=== PATIENT | male | born 1960 | race African-American/Black ===

== ENCOUNTER 2017-03-17 06:43 | Inpatient (IN) | payer BC, OTHER, SELFPAY ==
[2017-03-17] MEDS ORDERED: Magnesium Sulfate 2 GM/100 ML BAG ONE (06:56)
[2017-03-17 07:26] LABS: #Eosinphils 0.2 thou/uL (0.0-0.7); #Lymphocytes 1.6 thou/uL (1.20-3.40); #Monocytes 0.5 thou/uL (0.11-0.59); #Neutrophils 2.4 thou/uL (1.40-6.50); %Basophils 0.7 % (0.0-1.0); %Eosinophils 3.9 % (0.0-10.0); %Monocytes 10.9 % (0.0-10.0); Hematocrit 44.5 % (42.0-52.0); Mean Platelet Volume 7.5 fL (7.4-10.4); Red Blood Cell (RBC) Count 4.78 mill/uL (4.70-6.10); White Blood Cell (WBC) Count 4.8 thou/uL (4.8-10.8)
[2017-03-17 07:33] LABS: PTT 34.4 SEC (22.9-36.1); Prothrombin Time 13.8 SEC (12.0-14.7)
[2017-03-17] MEDS ORDERED: Amiodarone In Dextrose,Iso-Osm 200 ML IVPB SCH (07:45)
[2017-03-17 07:51] LABS: Troponin I 0.033 ng/mL (< 0.028)
[2017-03-17 07:53] LABS: ALT (SGPT) 32 U/L (8-55); AST (SGOT) 42 U/L (5-34); Alkaline Phosphatase 216 U/L (40-150); Anion Gap 13 mmol/L (10-20); BUN (Urea Nitrogen) 21 mg/dL (8.4-25.7); Bilirubin, Total 0.5 mg/dL (0.2-1.2); CK (CPK) 67 U/L (30-200); Calc. Creatinine Clearance 0 mL/min (70-130); Calcium 10.6 mg/dL (7.8-10.44); Carbon Dioxide 24 mmol/L (22-29); Chloride 102 mmol/L (98-107); Estimated GFR-MDRD 70; Globulin 4.5 g/dL (2.4-3.5); Lipase 53 U/L (8-78); Protein, Total 7.6 g/dL (6.0-8.3)
[2017-03-17] MEDS ORDERED: Ondansetron HCl/PF 4 MG/2 ML Vial ONE (07:57)
[2017-03-17] MEDS ORDERED: Amiodarone HCl 450 MG, Admixture Fee 1 EACH in Dextrose 5% in Water 250 ML IVPB SCH ×3 (08:00)
[2017-03-17] MEDS ORDERED: Fentanyl 100 MCG/2 ML VIAL ONE (09:29)
--- NOTE | 2017-03-17 10:12 | CT ---
CT ANGIO CHEST WITH CONTRAST: Date: 03/17/17 HISTORY: Evaluate for pulmonary embolism. Chest pain. COMPARISON: None. TECHNIQUE: CT angiogram chest performed after the administration of contrast. 3D rendering is provided. FINDINGS: No proximal segmental pulmonary arterial filling defect. Heart size is enlarged. No significant peric ardial effusion. There is extensive mediastinal adenopathy throughout the chest. Subcarinal adenopathy is present, as well as perihilar adenopathy. There are numerous nodules throughout the lungs. There is peribronchova scular thickening of both lower lobes. There is conglomerate right paratracheal adenopathy measuring 4.3 x 4.6 x 4.3 cm. Very large, round, AP and lateral lymph nodes are present. Bilateral hilar lymph nodes are present. There is splaying of the pulmonary vasculature and narrowing of the proximal segme ntal bronchi due to extensive adenopathy. Retroperitoneal adenopathy is present. Left AP window adeno bruce is present. The spleen appears to be enlarged, although incompletely evaluated. IMPRESSION: 1. Overall findings are concerning for lymphoma with extensive mediastinal and upper abdominal adeno bruce, as well as flame-shaped intraparenchymal opacities and peribronchovascular thickening. Oncolog ic consultation recommended. Bronchoscopy recommended. 2. No proximal segmental pulmonary arterial filling defect. CODE: CR. Dr. Cordova POS: [facility]
[2017-03-17] MEDS ORDERED: Milk Of Magnesia 30 ML UDCUP PO PRN (10:30)
[2017-03-17] MEDS ORDERED: Artificial Tears 18 DROP/0.9 ML EA EYE PRN (10:30)
[2017-03-17] MEDS ORDERED: Acetaminophen 325 MG TAB PO PRN (10:30)
[2017-03-17] MEDS ORDERED: Amiodarone HCl 450 MG in Dextrose 5% in Water 250 ML IVPB SCH ×2 (10:30)
[2017-03-17] MEDS ORDERED: Sodium Chloride 0.65% Nasal 44 ML BOT EA NARE PRN (10:30)
[2017-03-17] MEDS ORDERED: Nitroglycerin 0.4 MG TAB (25 Tab Bottle) SL PRN (10:30)
[2017-03-17] MEDS ORDERED: Diabetic Tussin 200 MG/10 ML UDCUP PO PRN (10:30)
[2017-03-17] MEDS ORDERED: Eucerin (Mineral Oil/Petrolatum,White) 30 gm Jar TOP PRN (10:30)
[2017-03-17] MEDS ORDERED: HYDROcodone/Acetaminophen 5/325 mg Tablet PO PRN (10:30)
[2017-03-17] MEDS ORDERED: Mag-Al 1200 mg/1200 mg/30 ML UDCUP PO PRN (10:30)
[2017-03-17] MEDS ORDERED: hydrALAZINE 20 MG/ML VIAL SLOW IVP PRN (10:30)
[2017-03-17] MEDS ORDERED: Senokot 8.6 MG TAB PO PRN (10:30)
[2017-03-17] MEDS ORDERED: Loratadine 10 MG TAB PO PRN (10:30)
[2017-03-17] MEDS ORDERED: Zolpidem Tartrate 5 MG TAB PO PRN (10:30)
[2017-03-17] MEDS ORDERED: Loperamide HCl 2 MG CAP PO PRN (10:30)
[2017-03-17] MEDS ORDERED: Chloraseptic Spray 180 ml Bottle PO PRN (10:30)
--- NOTE | 2017-03-17 10:43 | RAD ---
CHEST 1 VIEW: Date: 03/17/17 HISTORY: Chest pain. COMPARISON: None. FINDINGS: Heart size enlarged. Abnormal contour along the right cardiac border. Abnormal opacities in both lung bases. No pneumothorax. IMPRESSION: 1. Abnormal contour of the right heart border concerning for adenopathy. 2. Opacities in both lung bases may represent infection or other intrathoracic disease. CT recommend ed. POS: [facility]
--- NOTE | 2017-03-17 10:50 | HP ---
PRIMARY CARE PHYSICIAN: Dr. Sulaiman Luis at [facility]. REASON FOR ADMISSION: Ventricular arrhythmia (Torsades), frequent PVCs, chest pain, hypotension. HISTORY OF PRESENT ILLNESS: A 57-year-old -Vin[place] male with a history of obesity, hypertens ion, and dyslipidemia who came to emergency room for evaluation of chest pain. Patient reports that he woke up around 2 a.m. in the morning with acute onset of chest pain, shortnes s of breath, nausea, but no vomiting. He was feeling hot even though outside was cold. He denies an y diaphoresis. He was not able to lie down flat in bed. He was feeling dizzy and intensity of pain was about 6/10. He was uncomfortable. He was having difficulty breathing and that is why he decided to come to emergency room for evaluation. The patient does report that he gets dyspnea on exertion even before this, but he did not have this d egree of pain or shortness of breath before. He denies any fever or chills. He denies any chronic c ough, but last night when he was having chest pain, at that time, he was also having cough, but no he moptysis, no productive of phlegm. He denies any syncope. He denies any feeling of palpitation. He denies any fever, chills, night swe ats, and weight loss. He denies any melena, hematochezia or urinary tract infection symptoms. With these symptoms, he presented to the emergency room. Initial EKG showed arrhythmia with suspecte d for torsades. In the emergency room, patient was given magnesium sulfate 2 grams and amiodarone 15 0 mg IV push and drip was started. After that, patient's rhythm changed to AFIB and subsequently he became to sinus rhythm. Routine blood tests showed elevated troponin and BNP. He also had initially hypotension that was stabilized. REVIEW OF SYSTEMS: The following complete review of systems was negative, unless otherwise mentioned in the HPI or below: Constitutional: Weight loss or gain, ability to conduct usual activities. Skin: Rash, itching. Eyes: Double vision, pain. ENT/Mouth: Nose bleeding, neck stiffness, pain, tenderness. Cardiovascular: Palpitations, dyspnea on exertion, orthopnea. Respiratory: Shortness of breath, wheezing, cough, hemoptysis, fever or night sweats. Gastrointestinal: Poor appetite, abdominal pain, heartburn, nausea, vomiting, constipation, or diarr hea. Genitourinary: Urgency, frequency, dysuria, nocturia. Musculoskeletal: Pain, swelling. Neurologic/Psychiatric: Anxiety, depression. Allergy/Immunologic: Skin rash, bleeding tendency. Please see my HPI for pertinent positives and negatives. All other review of systems reviewed and ne gative except as mentioned in the HPI. ALLERGIES: The patient denies any known drug allergies. CURRENT HOME MEDICATIONS: The patient is not able to tell me the name of medication, but he reports that he is taking blood pressure and cholesterol medication. We will review his home medication when family brings. PAST MEDICAL HISTORY: Hypertension, dyslipidemia, and obesity. PAST SURGICAL HISTORY: Hernia repair x2. PAST PSYCHIATRIC HISTORY: Reviewed and negative. SOCIAL HISTORY: Patient denies any tobacco, alcohol or illicit drug abuse. 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 FAMILY HISTORY: Mother had kidney disease. Father had diabetes, prostate and kidney disease. No [facility] jose family history of cancer, stroke, or sudden cardiac . EMERGENCY ROOM COURSE: Patient is given fentanyl 100 microgram IV push, IV fluid, amiodarone drip, Z ofran 4 mg, aspirin 324 mg, amiodarone push and magnesium sulfate. PHYSICAL EXAMINATION: VITAL SIGNS: When I saw this patient in the emergency room, at that time, patient's blood pressure w as 92/62, pulse 68 with frequent PVCs in sinus, respiratory rate 23, temperature 97.5, saturation 97% on 2 liters oxygen, and weight 138 kilograms. GENERAL: Patient is currently alert, awake, no obvious acute distress. HEAD: Normocephalic, atraumatic. EYES: Pupils round, reactive to light. Extraocular muscles intact. ENT: Oropharynx within normal limits. Moist mucous membranes. No oral lesions. No pharyngeal eryt slade, no exudates. NECK: Supple, no JVD, no thyromegaly, no carotid bruit, no jugular venous distention. LUNGS: Clear to auscultation without any rhonchi or rales. CARDIAC: S1, S2, appears irregular with frequent PVCs, but no murmur elicited, no gallop, no rub. ABDOMEN: Soft. Bowel sounds present, no organomegaly, no mass, no suprapubic tenderness. BACK: Examination unremarkable, no CVA tenderness. EXTREMITIES: Upper extremity passive movements of all joints are normal. Lower extremities: No jordan ma. Good peripheral pulsation. No calf tenderness. SKIN: No skin rash. HEMATOLOGICAL SYSTEM: No palpable lymphadenopathy. NEUROLOGIC: Nonfocal examination. Patient is alert and oriented x3. Speech, normal. Motor and sen sation within normal limits. No focal neurological deficit. IMAGING DATA AND SIGNIFICANT LABORATORY DATA: 1. EKG initially showed findings suggestive of Torsades de pointes with left axis deviation. Second EKG showed atrial fibrillation with rapid ventricular response and third EKG showed after magnesium and amiodarone, first degree atrioventricular block in sinus rhythm. 2. Chest x-ray based on my review, cardiomegaly, acute cephalization. 3. CT angiography, no evidence of pulmonary embolism, but findings suspicious for lymphoma. 4. CBC: WBC 4.8, hemoglobin 14.1, platelets 197. INR 1.0, D-dimer 1.26. 5. BMP: Sodium 135, potassium 4.1, chloride 102, carbon dioxide 24, BUN 21, creatinine 1.27, glucos e 161, calcium 10.6. 6. LFT: AST 42, ALT 32, alkaline phosphatase 216, albumin 3.1, lipase 53, CK 67, CK-MB 3.2, troponi n I 0.033. BNP 611.6, TSH 2.27. ASSESSMENT AND PLAN/IMPRESSION: 1. Acute ventricular arrhythmia with Torsades converted after magnesium and amiodarone. Cardiology will be consulted. We will avoid medications that can cause prolonged QT interval. Meanwhile, we wi ll continue amiodarone drip and we will closely monitor in the CCU. Echocardiography will be ordered and will rule out acute coronary syndrome. Further evaluation and treatment options will defer to C gracieladiology. Cardiology already notified from the ER and by me. 2. Transient atrial fibrillation with rapid ventricular response converted to sinus rhythm. At this point, patient is on amiodarone drip for anticoagulation. We will defer to Cardiology. Echocardiog deedee is going to be ordered. We will monitor in CCU. At this point, patient's rate is under contro l. 3. Frequent premature ventricular contractions. At this point, patient's telemetry rhythm is showin g frequent premature ventricular contractions and arrhythmias. Patient is already on amiodarone drip . We will closely monitor in the CCU, Cardiology on the case. 4. Chest pain, likely related with problem #1. 5. Rule out acute coronary syndrome. Meanwhile, continue with aspirin 325 mg p.o. daily. 6. Anticoagulation, will defer to Cardiology. Further investigations will defer to Cardiology. We will obtain echocardiography. 7. Hypotension, likely related with arrhythmia, currently stabilized, we will monitor in CCU for any hemodynamic compromise. 8. History of hypertension. We will verify his home medication, but currently blood pressure runs l ow and that is why we will hold on antihypertensive medication, but if needed, we will consider beta aminata therapy. 9. Elevated troponin, likely due to demand ischemia. Rule out acute coronary syndrome, serial cardi ac enzyme and echocardiography. We will continue aspirin 325 mg p.o. daily. We will check lipid pro file tomorrow morning for risk stratification. 10. Elevated BNP, likely related with arrhythmias. We will rule out any underlying systolic or lloyd tolic dysfunction. We are going to obtain echocardiography. 11. History of suspected lymphoma. This patient's CT scan report suspected for lymphadenopathy. Di fferential may be sarcoidosis. At this point, I will send flow cytometry and LDH. We will consult O ncology for further evaluation. Further investigation will defer per Oncology. 12. Deep venous thrombosis prophylaxis. We will start Lovenox 40 mg subcutaneously daily. 13. Gastrointestinal prophylaxis. Pepcid 20 mg p.o. b.i.d. 14. Code status: The patient is FULL CODE. The patient does not have any surrogate decision maker. Disposition plan based on clinical course. We are expecting patient's stay in hospital more than 2 m idnights. Plan of care discussed with the patient and family member at bedside in the emergency room .
[2017-03-17 10:58] LABS: Troponin I 0.059 ng/mL (< 0.028)
[2017-03-17] MEDS ORDERED: ISOVUE-370 76%-LOCM 1 ML ONE (13:47)
[2017-03-17] MEDS ORDERED: Spironolactone 25 MG TAB PO SCH (14:30)
[2017-03-17] MEDS ORDERED: Furosemide 40 MG/4 ML VIAL SLOW IVP SCH (14:30)
[2017-03-17] MEDS ORDERED: Communication Order-Pharmacy FS SCH (14:30)
[2017-03-17 15:22] LABS: Bilirubin Negative (Negative); Blood, Urine Negative (Negative); Glucose, Urine (Dipstick) Negative (Negative); Ketone, Urine Negative (Negative); Nitrite Negative (Negative); Protein, Urine (Dipstick) Negative (Neg-Trace); Urobilinogen 0.2 mg/dL (0.2-1.0)
[2017-03-17 15:23] LABS: Bacteria/HPF None Seen HPF (None Seen); Hyaline Casts/LPF 0-3 HYALINE CAST LPF (0-3 Hyaline); RBC/HPF None Seen HPF (0-3); Squamous Epithelial None Seen HPF (0-3); WBC/HPF None Seen HPF (0-3)
[2017-03-17 15:31] LABS: Amphetamine Not Detected (NotDetected); Methadone Not Detected (NotDetected); Methamphetamine Not Detected (NotDetected)
[2017-03-17] MEDS: Carvedilol 3.125 MG TAB PO SCH (17:32)
--- NOTE | 2017-03-17 19:17 | CON ---
DATE OF CONSULTATION: 03/17/2017 HISTORY OF PRESENT ILLNESS: Patient is a pleasant 57-year-old gentleman who presented with increasin g dyspnea and chest discomfort. The patient has no previous cardiac history. Approximately a month ago, he started noticing dyspnea on exertion. He reports that he has noticed dyspnea with less and l ess exertion. The patient states this morning he awoke at 2:00 with substernal chest discomfort. He became markedly dyspneic and presented in the emergency room. The patient was noted in the emergenc y room to be in a very rapid irregular heart rhythm. The patient denies having any present chest dis comfort. PAST MEDICAL HISTORY: Significant for hypertension. PAST SURGICAL HISTORY: None. SOCIAL HISTORY: Nonsmoker. Does not consume alcohol. MEDICATIONS ON ADMISSION: None. ALLERGIES: No known drug allergies. FAMILY HISTORY: No strong family history of coronary artery disease. PHYSICAL EXAMINATION: GENERAL: This is an obese gentleman in mild distress. VITAL SIGNS: Blood pressure 107/70. NECK: Showed no jugular venous distention. LUNGS: Clear to auscultation. HEART: Regular rate and rhythm, normal S1 and S2 with a 1/6 systolic murmur. ABDOMEN: Distended. EXTREMITIES: Showed no edemas. LABORATORY AND DIAGNOSTIC RESULTS: Sodium 135, potassium 4.1, chloride 102, bicarbonate 24, BUN 21, creatinine 1.27, glucose is 161, troponin was 0.059. TSH is 2.27. INR is 1.0. White blood cell cou nt 4.8, hemoglobin 14.1, hematocrit 44.5, and platelets are 197. EKG revealed normal sinus rhythm with ventricular tachycardia. IMPRESSION: 1. Ventricular tachycardia. 2. Severe cardiomyopathy. 3. Lymphoma. 4. Hypertension. 5. Obesity. PLAN: This gentleman presented with ventricular tachycardia and was placed on IV amiodarone. An pablito rgent echocardiogram revealed a severe decrease in left systolic function. The patient will be treat ed with beta aminata, amiodarone, lipid-lowering medication and also started on DILAN inhibitor therapy . I have recommended to proceed with a cardiac catheterization to evaluate whether he has significan t coronary artery disease in this period. The patient will most likely need a cardiac defibrillator. The will undergo EP evaluation, possible cardiac defibrillator. The patient will continue on IV am iodarone. Patient also has been noticed on CT scan to have evidence of possible lymphoma and wanted to go on oncology evaluation. We will follow this patient with you through his hospitalization. Critical care note time is 1 hour.
[2017-03-17] MEDS ORDERED: Metoprolol Tartrate 25 MG TAB PO SCH (21:00)
[2017-03-17] MEDS: Atorvastatin Calcium 20 MG TAB PO SCH (21:01)
[2017-03-17] MEDS: Famotidine 20 MG TAB PO SCH (21:01)
[2017-03-18 05:30] LABS: #Eosinphils 0.2 thou/uL (0.0-0.7); #Monocytes 0.6 thou/uL (0.11-0.59); #Neutrophils 2.2 thou/uL (1.40-6.50); %Basophils 0.8 % (0.0-1.0); %Eosinophils 4.8 % (0.0-10.0); %Lymphocytes 24.3 % (21.0-51.0); %Monocytes 14.6 % (0.0-10.0); Hematocrit 32.2 % (42.0-52.0); Red Blood Cell (RBC) Count 3.47 mill/uL (4.70-6.10)
[2017-03-18 05:31] LABS: ALT (SGPT) 21 U/L (8-55); AST (SGOT) 29 U/L (5-34); Alkaline Phosphatase 144 U/L (40-150); Anion Gap 8 mmol/L (10-20); BUN (Urea Nitrogen) 15 mg/dL (8.4-25.7); Bilirubin, Total 0.5 mg/dL (0.2-1.2); Calc. Creatinine Clearance 160 mL/min (70-130); Calcium 7.4 mg/dL (7.8-10.44); Carbon Dioxide 24 mmol/L (22-29); Chloride 111 mmol/L (98-107); Cholesterol 133 mg/dl (< 200 Desired); Estimated GFR-MDRD Greater than 90; LDL Cholesterol, Calculated 98 mg/dL; Magnesium 1.2 mg/dL (1.6-2.6); Protein, Total 5.1 g/dL (6.0-8.3)
[2017-03-18] MEDS: Carvedilol 3.125 MG TAB PO SCH ×2 (05:49→16:45)
[2017-03-18 06:39] LABS: Anion Gap 11 mmol/L (10-20); BUN (Urea Nitrogen) 20 mg/dL (8.4-25.7); Calc. Creatinine Clearance 107 mL/min (70-130); Calcium 10.3 mg/dL (7.8-10.44); Carbon Dioxide 30 mmol/L (22-29); Chloride 99 mmol/L (98-107); Estimated GFR-MDRD 60; Magnesium 1.9 mg/dL (1.6-2.6); Phosphorus 2.9 mg/dL (2.3-4.7)
[2017-03-18 06:54] LABS: Band 6 % (5-11); Hematocrit 39.6 % (42.0-52.0); Mean Platelet Volume 6.8 fL (7.4-10.4); Neutrophil 48 % (42-75); White Blood Cell (WBC) Count 4.6 thou/uL (4.8-10.8)
[2017-03-18] MEDS ORDERED: Enoxaparin Sodium 40 MG/0.4 ML SYRINGE SC SCH (09:00)
[2017-03-18] MEDS ORDERED: Furosemide 40 MG/4 ML VIAL SLOW IVP SCH (09:00)
[2017-03-18] MEDS: Aspirin 325 MG TAB PO SCH (09:32)
[2017-03-18] MEDS: Famotidine 20 MG TAB PO SCH ×2 (09:32→20:43)
[2017-03-18] MEDS ORDERED: Midazolam HCl 2 mg/2 ml Vial ONE (10:12)
[2017-03-18] MEDS ORDERED: traMADol HCl 50 MG TAB PO PRN (10:31)
[2017-03-18] MEDS ORDERED: Nitroglycerin 0.4 MG TAB (25 Tab Bottle) SL PRN (10:31)
[2017-03-18] MEDS ORDERED: Acetaminophen/Codeine 30-300mg Tablet PO PRN ×2 (10:31)
[2017-03-18] MEDS ORDERED: Sodium Chloride 0.9% 200 ML IV SCH (10:45)
[2017-03-18] MEDS: Spironolactone 25 MG TAB PO SCH (11:57)
--- NOTE | 2017-03-18 14:48 | PDOC.PN ---
- Subjective Encounter Start Date: 03/18/17 Encounter Start Time: 14:47 Patient seen at bedside. Underwent catheterization today. - Objective Resuscitation Status: Resuscitation Status FULL:Full Resuscitation Vital Signs & Weight: Vital Signs (12 hours) Temp Pulse Resp Pulse Ox 03/18/17 12:00 98.1 F 03/18/17 08:11 96 03/18/17 08:00 98.2 F 64 18 97 03/18/17 04:00 97 F L Most Recent Monitor Data Heart Rate from ECG 64 NIBP 115/55 NIBP BP-Mean 72 Respiration from ECG 22 SpO2 95 I&O: 03/17/17 03/18/17 03/19/17 06:59 06:59 06:59 Intake Total 1004 390 Output Total 3720 650 Balance -5809 -260 Result Diagrams: 03/18/17 06:00 03/18/17 06:00 Phys Exam - Physical Examination Constitutional: NAD HEENT: moist MMs Neck: no JVD Respiratory: clear to auscultation bilateral Cardiovascular: RRR Gastrointestinal: soft Musculoskeletal: pulses present Neurological: moves all 4 limbs Psychiatric: A&O x 3 Dx/Plan (1) Torsades de pointes Code(s): I47.2 - VENTRICULAR TACHYCARDIA Status: Acute (2) Cardiomyopathy Code(s): I42.9 - CARDIOMYOPATHY, UNSPECIFIED Status: Suspected (3) Hypertension Code(s): I10 - ESSENTIAL (PRIMARY) HYPERTENSION Status: Chronic (4) Hyperlipidemia Code(s): E78.5 - HYPERLIPIDEMIA, UNSPECIFIED Status: Chronic - Plan cont current plan of care, respiratory therapy, DVT proph w/lovenox * Continue with amiodarone per protocol. * BB/ASA/Statin * Will likely need an EP evaluation for possible defibrillator * Oncology evaluation for suspected lymphoma (lymphadenopathy seen on CTA) * Post catheterization care *
[2017-03-18] MEDS ORDERED: Iopamidol 370 76% 100 ML VIAL ONE (16:44)
[2017-03-18] MEDS: Atorvastatin Calcium 20 MG TAB PO SCH (20:43)
[2017-03-19 09:56] VITALS: BMI 37.8
[2017-03-19] MEDS: Furosemide 20 MG TAB PO SCH (09:58)
[2017-03-19] MEDS: Famotidine 20 MG TAB PO SCH ×2 (09:58→22:20)
[2017-03-19] MEDS: Spironolactone 25 MG TAB PO SCH (09:58)
[2017-03-19] MEDS: Carvedilol 3.125 MG TAB PO SCH ×2 (09:58→17:16)
--- NOTE | 2017-03-19 13:00 | PDOC.PN ---
- Subjective Encounter Start Date: 03/19/17 Encounter Start Time: 08:00 -: old records requested/rev Patient seen and examined. No new complaints. No overnight events - Objective Resuscitation Status: Resuscitation Status FULL:Full Resuscitation MAR Reviewed: Yes Vital Signs & Weight: Vital Signs (12 hours) Temp Pulse Resp BP BP Pulse Ox 03/19/17 11:00 98.0 F 79 18 119/72 95 03/19/17 08:00 98 F 77 19 95 03/19/17 07:43 98 F 77 19 144/90 H 95 03/19/17 04:00 98.9 F 86 18 146/73 H 95 Weight Admit Weight 304 lb 3.806 oz Weight 302 lb 12.8 oz Most Recent Monitor Data Heart Rate from ECG 65 NIBP 113/49 NIBP BP-Mean 80 Respiration from ECG 23 SpO2 94 I&O: 03/18/17 03/19/17 03/20/17 06:59 06:59 06:59 Intake Total 1004 2600 Output Total 3720 1625 Balance -2716 975 Result Diagrams: 03/18/17 06:00 03/18/17 06:00 EKG Reviewed by me: Yes (nsr) Phys Exam - Physical Examination Constitutional: NAD HEENT: PERRLA, moist MMs, sclera anicteric Neck: no JVD, supple Respiratory: no wheezing, no rales, no rhonchi Cardiovascular: RRR, no significant murmur, no rub Gastrointestinal: soft, non-tender, no distention, positive bowel sounds Musculoskeletal: no edema, pulses present Neurological: non-focal, normal sensation Psychiatric: normal affect, A&O x 3 Skin: no rash, normal turgor Dx/Plan (1) Cardiomyopathy Code(s): I42.9 - CARDIOMYOPATHY, UNSPECIFIED Status: Acute (2) Demand ischemia of myocardium Code(s): I24.8 - OTHER FORMS OF ACUTE ISCHEMIC HEART DISEASE Status: Acute (3) Torsades de pointes Code(s): I47.2 - VENTRICULAR TACHYCARDIA Status: Acute (4) Hyperlipidemia Code(s): E78.5 - HYPERLIPIDEMIA, UNSPECIFIED Status: Chronic (5) Hypertension Code(s): I10 - ESSENTIAL (PRIMARY) HYPERTENSION Status: Chronic (6) Obesity (BMI 30-39.9) Code(s): E66.9 - OBESITY, UNSPECIFIED Status: Chronic (7) Lymphoma Status: Suspected - Plan cont current plan of care, plan discussed w/ family * today will send flow cytometry * today plan for AICD * medication reviewed as below * symptomatic treatment * will monitor today * oncology to see today * continue amiodarone Review of Systems - Review of Systems ENT: negative: Ear Pain, Ear Discharge, Nose Pain, Nose Discharge, Nose Congestion, Mouth Pain, Mouth Swelling, Throat Pain, Throat Swelling, Other Respiratory: negative: Cough, Dry, Shortness of Breath, Hemoptysis, SOB with Excertion, Pleuritic Pain, Sputum, Wheezing Cardiovascular: negative: chest pain, palpitations, orthopnea, paroxysmal nocturnal dyspnea, edema, light headedness, other Gastrointestinal: negative: Nausea, Vomiting, Abdominal Pain, Diarrhea, Constipation, Melena, Hematochezia, Other Genitourinary: negative: Dysuria, Frequency, Incontinence, Hematuria, Retention , Other Musculoskeletal: negative: Neck Pain, Shoulder Pain, Arm Pain, Back Pain, Hand Pain, Leg Pain, Foot Pain, Other - Medications/Allergies Allergies/Adverse Reactions: Allergies Allergy/AdvReac Type Severity Reaction Status Date / Time No Allergy Information Allergy Unverified 03/17/17 07:32 Available Medications: Current Medications Acetaminophen (Tylenol) 650 mg PO Q4H PRN PRN Reason: Headache/Fever or Pain Acetaminophen/Codeine Phosphate (Tylenol #3) 1 tab PO Q4H PRN PRN Reason: Mild Pain (1-3) Acetaminophen/Codeine Phosphate (Tylenol #3) 2 tab PO Q4H PRN PRN Reason: Moderate Pain (4-6) Hydrocodone Bitart/Acetaminophen ([place] 5/325) 1 tab PO Q4H PRN PRN Reason: Moderate Pain (4-6) Al Hydroxide/Mg Hydroxide (Maalox) 30 ml PO Q6H PRN PRN Reason: Heartburn or Indigestion Artificial Tears (Tears Naturale) 0 drop EA EYE PRN PRN PRN Reason: Dry Eyes Aspirin (Aspirin) 325 mg PO DAILY [facility] Last Admin: 03/18/17 09:32 Dose: 325 mg Atorvastatin Calcium (Lipitor) 20 mg PO HS [facility] Last Admin: 03/18/17 20:43 Dose: 20 mg Carvedilol (Coreg) 3.125 mg PO BID-[facility] Last Admin: 03/19/17 09:58 Dose: 3.125 mg Famotidine (Pepcid) 20 mg PO BID [facility] Last Admin: 03/19/17 09:58 Dose: 20 mg Furosemide (Lasix) 20 mg PO DAILY [facility] Last Admin: 03/19/17 09:58 Dose: 20 mg Guaifenesin (Robitussin Sf) 200 mg PO Q4H PRN PRN Reason: Cough Hydralazine HCl (Apresoline) 10 mg SLOW IVP Q4H PRN PRN Reason: Systolic BP > 180 Amiodarone HCl 450 mg/ (Dextrose/Water) 259 mls @ 0 mls/hr IVPB INF [facility]; Per Protocol PRN Reason: Protocol Last Admin: 03/17/17 17:51 Dose: 259 mls Loperamide HCl (Imodium) 2 mg PO PRN PRN PRN Reason: Diarrhea/Loose Stools Loratadine (Claritin) 10 mg PO DAILYPRN PRN PRN Reason: Sinus Symptoms Magnesium Hydroxide (Milk Of Magnesium) 30 ml PO DAILYPRN PRN PRN Reason: Constipation Mineral Oil/White Petrolatum (Eucerin Cream) 0 gm TOP BIDPRN PRN PRN Reason: Dry Skin Nitroglycerin (Nitrostat) 0.4 mg SL Q5MIN PRN PRN Reason: Chest Pain Nitroglycerin (Nitrostat) 0.4 mg SL Q5MIN PRN PRN Reason: Chest Pain Phenol (Chloraseptic [place] 180 Ml Bot) 0 ml PO PRN PRN PRN Reason: Sore Throat Senna (Senokot) 2 tab PO HSPRN PRN PRN Reason: Constipation Sodium Chloride ([place] Nasal [place] 0.65%) 0 ml EA NARE QIDPRN PRN PRN Reason: Nasal Congestion Spironolactone (Aldactone) 25 mg PO QAM-WM [facility] Last Admin: 03/19/17 09:58 Dose: 25 mg Tramadol HCl (Ultram) 50 mg PO Q6H PRN PRN Reason: Moderate Pain (4-6) Zolpidem Tartrate (Ambien) 5 mg PO HSPRN PRN PRN Reason: Insomnia
[2017-03-19] MEDS ORDERED: Midazolam HCl 2 mg/2 ml Vial ONE ×2 (13:07→14:50)
[2017-03-19] MEDS ORDERED: Fentanyl 100 MCG/2 ML VIAL ONE (13:08)
[2017-03-19] MEDS ORDERED: Lidocaine 1% (PF) 30 ML VIAL ONE (14:32)
[2017-03-19] MEDS ORDERED: Sodium Chloride 0.9% 10 ML ONE (15:58)
[2017-03-19] MEDS: Aspirin 325 MG TAB PO SCH (17:15)
[2017-03-19] MEDS ORDERED: HYDROcodone/Acetaminophen 5/325 mg Tablet PO PRN ×2 (17:30)
[2017-03-19] MEDS ORDERED: Acetaminophen/Codeine 30-300mg Tablet PO PRN ×2 (17:30)
[2017-03-19] MEDS ORDERED: Propofol 200 MG/20 ML VIAL ONE (17:33)
[2017-03-19] MEDS: Cephalexin 250 MG CAP PO SCH (18:23)
--- NOTE | 2017-03-19 18:33 | OP ---
DATE OF SERVICE: 03/19/2017 ELECTROPHYSIOLOGY STUDY REPORT REFERRING PHYSICIAN: Dr. Calvin. REASON FOR PROCEDURE: Mr. Adame is a 57-year-old man who has a history of newly-found cardiomyopath y with severely reduced left ventricular systolic function, LVEF 15 to 20%, he also had some atrial f ibrillation by history. He is now on amiodarone drip. He presented with wide-complex tachycardia to evaluate for ventricular arrhythmias. PROCEDURE IN DETAIL: The patient received sedation by Anesthesia specialist. After adequate sedatio n achieved, the right femoral venous area was prepped, draped and anesthetized using subcutaneous lid ocaine and with ultrasound guidance, the right femoral vein was accessed without difficulty. Through this, a 6-Icelandic short sheath was introduced through a 6-Icelandic quadripolar deflectable catheter was advanced to the right ventricle and right atrium, and the His bundle location. Pacing mapping and r ecording was all performed in each location. BASELINE MEASUREMENTS: Cycle lengths at baseline was 823 milliseconds, NJ 209, QRS 76, QT 360 millis econds, AH 163, HV 46 milliseconds. After 500 milliseconds pacing, sinus node recovery time was 12.7 6 milliseconds corrected 400 milliseconds. VA conduction was not observed at 700 milliseconds drivet rain pacing. Frequent PVCs are noted during the study. AV aristeo ERP was achieved at 600/360, no def inite dual AV aristeo physiology was observed. VA ERP was achieved at 600/280/180/180 milliseconds at 4 ventricular extrastimuli. Burst atrial pacing induced sustained likely typical atrial flutter with cycle length 240 millisecond s. EKG more suggestive of possible isthmus dependent counterclockwise flutter. It was pace terminat ed above. With up to 3 ventricular extrastimuli, nonsustained ventricular tachycardia was induced wh ile the patient was on amiodarone. CONCLUSION: 1. Nonsustained ventricular tachycardia inducible, on amiodarone. 2. Sustained atrial flutter pace terminated with possible typical isthmus-dependent morphology. 3. Borderline sinus node recovery time, but still is in normal range. 4. No VA conduction. 5. No preexcitation observed. Normal HV interval is seen throughout. PLAN: Proceed with dual chamber ICD implantation.
[2017-03-19] MEDS: Atorvastatin Calcium 20 MG TAB PO SCH (22:21)
[2017-03-20] MEDS: Cephalexin 250 MG CAP PO SCH ×3 (00:32→13:02)
--- NOTE | 2017-03-20 03:31 | CON ---
DATE OF CONSULTATION: 03/19/2017 ELECTROPHYSIOLOGY CONSULTATION REPORT REFERRING PHYSICIAN: Dr. Calvin. I am seeing Mr. Adame at our [facility] telemetry floor as an electrophysiology technical consultant. His problems are: 1. Presentation with sustained ventricular arrhythmia, likely monomorphic with also requiring amiodarone for full suppression. 2. Newly found systolic congestive heart failure with nonischemic cardiomyopathy. A. The left heart catheterization on 03/17/2017 reveals mild coronary artery disease, nonocclusive. B. 2D echo from 03/17/2017 shows LVEF of 50-70%. 3. Normal potassium on presentation, worsening post-diuresis, now normalized. 4. Coronary artery risk factors including obesity. No prior history of heart disease or heart attacks. B. History of hypertension and dyslipidemia. 5. Atypical chest pain, now resolved. ALLERGIES: None noted. MEDICATIONS AT HOME: Included Lipitor, amlodipine, losartan, and atenolol. SUBJECTIVE: Mr. Adame is presenting with chest pain sensations in the ER. In the ER, he was noted to have a long, but self terminating ventricular tachyarrhythmias. EKGs are suggestive of monomorphic tachycardia, although some documentation would suggest torsades. He eventually required IV amiodarone , but did not require external cardioversion. He also had transient atrial fibrillation, then now maintaining sinus rhythm. . He has no stroke-like symptoms. No neurological deficits. No fever, chills, or cough. REVIEW OF SYSTEMS: Rest of 12-point review of systems is otherwise unremarkable. PAST MEDICAL HISTORY: As above. SOCIAL HISTORY: Patient denies smoking, ETOH, or drug abuse. FAMILY HISTORY: Significant for mother with kidney disease. Father had diabetes, prostate, and kidney disease. No sudden cardiac in the family. OBJECTIVE DATA: VITAL SIGNS: Blood pressure currently 119/72, heart rate 79, respirations 18, temperature 98 degrees Fahrenheit. GENERAL: He is alert and oriented, morbidly obese man, in no apparent distress. NECK: Supple. Jugular veins are difficult to evaluate, but then appear distended. CHEST: Coarse S2 without crackles. CARDIOVASCULAR: Heart sounds are regular rate and rhythm. No murmur or gallop. ABDOMEN: Benign. Bowel sounds are positive. EXTREMITIES: Lower extremities without edema, clubbing, or cyanosis. Pulses are adequate. NEUROLOGIC: Patient is nonfocal. MUSCULOSKELETAL: No joint swelling or deformities. SKIN: Without rash. DATABASE: EKGs reviewed initially on revealing long runs of monomorphic ventricular tachycardia which are left bundle and inferior axis in morphology competing with sinus rhythm intermittently. Subsequent EKGs reveal also has bigeminal PVCs alternating with sustained ventricular tachycardia. VT cycle lengths are 218 milliseconds to 320 milliseconds. There is suggestion by that the patient converted to atrial fibrillation and eventually maintained sinus rhythm. Most f the EKGs reveals sinus rhythm with no significant QTc prolongation . LABORATORY DATA: The initial potassium registered 4.1, sodium 135, BUN is 21, creatinine is 1.27. The white count 4.6, hemoglobin 12.8, platelet count is 181. The INR is 1.0. Chest x-ray reveals bibasilar opacities, no pneumothorax. The chest CT reveals extensive abdominal and mediastinal adenopathy. highest troponin is 0.09. His BNP on the other hand was elevated at 611. ASSESSMENT AND PLAN: Mr. Adame is a 57-year-old man with Initial presentation with ventricular tachyarrhythmia which appears to be sustained with self- terminating episodes, were eventually suppressed with amiodarone. He has not completely passed out, but had significant chest tightness sensation with these episodes. Now he is doing better on IV amiodarone. His workup revealed severe LV dysfunction with likely nonischemic cardiomyopathy as a cause. prior history of hypertension, hyperlipidemia, which he was adequately treated with DILAN inhibitors and beta blockers. He is presenting with chest tightness sensations , chest pain syndromes, with borderline troponin changes only. He also had signs of fluid overload and now diuresed. We discussed with treatment options. Hence the presentation of sustained ventricular arrhythmias and possibly atrial arrhythmias as well. It was felt reasonable to proceed with EP study to evaluate the nature of these arrhythmias. Nevertheless, due to sustained nature of the arrhythmia and the severe LV dysfunction, I am concerned about future recurrence of these ventricular arrhythmias despite the amiodarone. Also, he might not be an ideal candidate for long-term amiodarone therapy either. Hence the potential future side effect. For this reason, I think strong consideration should be given to ICD implantation as well. We discussed the procedure, the rationale, and alternative treatments with the family. We discussed the consideration for LifeVest. At this point they would prefer the ICD implantation to proceed. They understand the risk of infection , bleeding, pneumothorax, tamponade, device malfunctions, lead dislodgement, and device recalls. They are willing to proceed. We will schedule him for EP study and ICD implantation. Thank you again for allowing me to participate in the care of this patient. AMANDA
[2017-03-20 08:45] LABS: #Eosinphils 0.1 thou/uL (0.0-0.7); #Monocytes 0.7 thou/uL (0.11-0.59); #Neutrophils 3.2 thou/uL (1.40-6.50); %Basophils 0.6 % (0.0-1.0); %Eosinophils 2.9 % (0.0-10.0); %Lymphocytes 20.1 % (21.0-51.0); %Monocytes 14.4 % (0.0-10.0); Hematocrit 43.3 % (42.0-52.0); Mean Platelet Volume 6.6 fL (7.4-10.4); Red Blood Cell (RBC) Count 4.77 mill/uL (4.70-6.10); White Blood Cell (WBC) Count 5.1 thou/uL (4.8-10.8)
--- NOTE | 2017-03-20 08:49 | RAD ---
CHEST ONE VIEW: History: Chest pain. Defibrillator placement. Comparison: 03-17-17 FINDINGS: Cardiac silhouette is magnified by projection. Pulmonary vasculature remains engorged, similar in emily earance to the prior exam. Mediastinum is midline. Dual-lead left subclavian cardiac electronic devic e is now in place with leads in the right atrium and right ventricle. There is no evidence of pneumot horax. traveling sales executive leads overlie the chest. IMPRESSION: 1. No left subclavian cardiac defibrillator is in good radiographic position. 2. Mild pulmonary vascular congestion. POS: [facility]
[2017-03-20] MEDS: Spironolactone 25 MG TAB PO SCH (08:55)
[2017-03-20] MEDS: Carvedilol 3.125 MG TAB PO SCH ×2 (08:55→18:46)
[2017-03-20 09:07] LABS: Anion Gap 13 mmol/L (10-20); BUN (Urea Nitrogen) 18 mg/dL (8.4-25.7); Calc. Creatinine Clearance 120 mL/min (70-130); Calcium 10.4 mg/dL (7.8-10.44); Carbon Dioxide 24 mmol/L (22-29); Chloride 100 mmol/L (98-107); Estimated GFR-MDRD 69; Magnesium 1.7 mg/dL (1.6-2.6)
[2017-03-20] MEDS: Aspirin 325 MG TAB PO SCH (09:52)
[2017-03-20] MEDS: Famotidine 20 MG TAB PO SCH (09:53)
[2017-03-20] MEDS: Furosemide 20 MG TAB PO SCH (09:54)
--- NOTE | 2017-03-20 11:27 | PDOC.PN ---
- Subjective Encounter Start Date: 03/20/17 Encounter Start Time: 08:20 Patient seen and examined. No new complaints. No overnight events - Objective Resuscitation Status: Resuscitation Status FULL:Full Resuscitation MAR Reviewed: Yes Vital Signs & Weight: Vital Signs (12 hours) Temp Pulse Resp BP BP Pulse Ox 03/20/17 08:00 97.6 F 85 18 96 03/20/17 07:46 97.6 F 85 18 129/70 95 03/20/17 04:00 97.9 F 78 18 159/93 H 96 Weight Admit Weight 304 lb 3.806 oz Weight 303 lb 1.6 oz Most Recent Monitor Data Heart Rate from ECG 65 NIBP 113/49 NIBP BP-Mean 80 Respiration from ECG 23 SpO2 94 I&O: 03/19/17 03/20/17 03/21/17 06:59 06:59 06:59 Intake Total 2600 970 Output Total 1625 1980 Balance 975 -1010 Result Diagrams: 03/20/17 08:25 03/20/17 08:25 Radiology Reviewed by me: Yes (ches xray- aicd in place) EKG Reviewed by me: Yes (nsr) Phys Exam - Physical Examination Constitutional: NAD HEENT: PERRLA, moist MMs, sclera anicteric Neck: no JVD, supple Respiratory: no wheezing, no rales, no rhonchi Cardiovascular: RRR, no significant murmur, no rub Gastrointestinal: soft, non-tender, no distention, positive bowel sounds Musculoskeletal: no edema, pulses present Neurological: non-focal Lymphatic: no nodes Psychiatric: normal affect Skin: no rash, normal turgor Dx/Plan (1) Cardiomyopathy Code(s): I42.9 - CARDIOMYOPATHY, UNSPECIFIED Status: Acute (2) Demand ischemia of myocardium Code(s): I24.8 - OTHER FORMS OF ACUTE ISCHEMIC HEART DISEASE Status: Acute (3) Torsades de pointes Code(s): I47.2 - VENTRICULAR TACHYCARDIA Status: Acute (4) Hyperlipidemia Code(s): E78.5 - HYPERLIPIDEMIA, UNSPECIFIED Status: Chronic (5) Hypertension Code(s): I10 - ESSENTIAL (PRIMARY) HYPERTENSION Status: Chronic (6) Obesity (BMI 30-39.9) Code(s): E66.9 - OBESITY, UNSPECIFIED Status: Chronic (7) Lymphoma Status: Suspected - Plan cont current plan of care, plan discussed w/ family, continue antibiotics * medication reviewed as below * symptomatic treatment * today oncology to see * will need lymph node biopsy o confirm diagnosis. * otherwise stable Review of Systems - Review of Systems ENT: negative: Ear Pain, Ear Discharge, Nose Pain, Nose Discharge, Nose Congestion, Mouth Pain, Mouth Swelling, Throat Pain, Throat Swelling, Other Respiratory: negative: Cough, Dry, Shortness of Breath, Hemoptysis, SOB with Excertion, Pleuritic Pain, Sputum, Wheezing Cardiovascular: negative: chest pain, palpitations, orthopnea, paroxysmal nocturnal dyspnea, edema, light headedness, other Gastrointestinal: negative: Nausea, Vomiting, Abdominal Pain, Diarrhea, Constipation, Melena, Hematochezia, Other Genitourinary: negative: Dysuria, Frequency, Incontinence, Hematuria, Retention , Other Musculoskeletal: negative: Neck Pain, Shoulder Pain, Arm Pain, Back Pain, Hand Pain, Leg Pain, Foot Pain, Other - Medications/Allergies Allergies/Adverse Reactions: Allergies Allergy/AdvReac Type Severity Reaction Status Date / Time No Allergy Information Allergy Unverified 03/17/17 07:32 Available Medications: Current Medications Acetaminophen (Tylenol) 650 mg PO Q4H PRN PRN Reason: Headache/Fever or Pain Acetaminophen/Codeine Phosphate (Tylenol #3) 1 tab PO Q4H PRN PRN Reason: Mild Pain (1-3) Acetaminophen/Codeine Phosphate (Tylenol #3) 2 tab PO Q4H PRN PRN Reason: Moderate Pain (4-6) Hydrocodone Bitart/Acetaminophen (Hondo 5/325) 1 tab PO Q4H PRN PRN Reason: Mild Pain Hydrocodone Bitart/Acetaminophen (Hondo 5/325) 2 tab PO Q4H PRN PRN Reason: For Moderate Pain Last Admin: 03/19/17 22:21 Dose: 2 tab Al Hydroxide/Mg Hydroxide (Maalox) 30 ml PO Q6H PRN PRN Reason: Heartburn or Indigestion Amiodarone HCl (Cordarone) 400 mg PO BID [facility] Last Admin: 03/20/17 09:53 Dose: 400 mg Artificial Tears (Tears Naturale) 0 drop EA EYE PRN PRN PRN Reason: Dry Eyes Aspirin (Aspirin) 325 mg PO DAILY [facility] Last Admin: 03/20/17 09:52 Dose: 325 mg Atorvastatin Calcium (Lipitor) 20 mg PO HS [facility] Last Admin: 03/19/17 22:21 Dose: 20 mg Carvedilol (Coreg) 3.125 mg PO BID-[facility] Last Admin: 03/20/17 08:55 Dose: 3.125 mg Cephalexin (Keflex) 500 mg PO Q6HR [facility] Stop: 03/25/17 18:01 Last Admin: 03/20/17 06:59 Dose: 500 mg Famotidine (Pepcid) 20 mg PO BID [facility] Last Admin: 03/20/17 09:53 Dose: 20 mg Furosemide (Lasix) 20 mg PO DAILY [facility] Last Admin: 03/20/17 09:54 Dose: 20 mg Guaifenesin (Robitussin Sf) 200 mg PO Q4H PRN PRN Reason: Cough Hydralazine HCl (Apresoline) 10 mg SLOW IVP Q4H PRN PRN Reason: Systolic BP > 180 Loperamide HCl (Imodium) 2 mg PO PRN PRN PRN Reason: Diarrhea/Loose Stools Loratadine (Claritin) 10 mg PO DAILYPRN PRN PRN Reason: Sinus Symptoms Magnesium Hydroxide (Milk Of Magnesium) 30 ml PO DAILYPRN PRN PRN Reason: Constipation Mineral Oil/White Petrolatum (Eucerin Cream) 0 gm TOP BIDPRN PRN PRN Reason: Dry Skin Nitroglycerin (Nitrostat) 0.4 mg SL Q5MIN PRN PRN Reason: Chest Pain Nitroglycerin (Nitrostat) 0.4 mg SL Q5MIN PRN PRN Reason: Chest Pain Phenol (Chloraseptic [place] 180 Ml Bot) 0 ml PO PRN PRN PRN Reason: Sore Throat Senna (Senokot) 2 tab PO HSPRN PRN PRN Reason: Constipation Sodium Chloride ([place] Nasal [place] 0.65%) 0 ml EA NARE QIDPRN PRN PRN Reason: Nasal Congestion Sodium Chloride (Flush - Normal Saline) 10 ml IVF PRN PRN PRN Reason: Saline Flush Spironolactone (Aldactone) 25 mg PO QAM-[facility] Last Admin: 03/20/17 08:55 Dose: 25 mg Tramadol HCl (Ultram) 50 mg PO Q6H PRN PRN Reason: Moderate Pain (4-6) Zolpidem Tartrate (Ambien) 5 mg PO HSPRN PRN PRN Reason: Insomnia
--- NOTE | 2017-03-20 13:33 | CON ---
DATE OF CONSULTATION: 03/20/2017 CONSULTING PHYSICIAN: Dr. Vogel REASON FOR CONSULTATION: Mediastinal lymphadenopathy. HISTORY OF PRESENT ILLNESS: Mr. Adame is a 57-year-old male who presented to the hospital with tors ades on 03/17/2017. He has some chest pain prior. He underwent a CT pulmonary angiogram which demon strated significant mediastinal adenopathy extending into the right hilum, but also up to the right n elisha. He states that he was currently undergoing some type of testing through Oncology at [facility], but does not know what they found. I do not have records from that facility to review. He has no previous history of cancer or sarcoidosis. He had 80 pounds of intentional weight loss, ab out a year ago, but is currently not losing weight. He is not having any constitutional symptoms suc h as night sweats. PAST MEDICAL HISTORY: 1. Hypertension. 2. Hyperlipidemia. 3. Obesity. PAST SURGICAL HISTORY: He has had two hernia repairs and now a defibrillator placed. SOCIAL HISTORY: He has never smoked, does not consume alcohol, does not use illicit drugs. 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 MEDICATIONS PRIOR TO ADMISSION: These were reviewed and include atenolol/chlorthalidone 100/25 one d aily, losartan 100 mg daily, Norvasc 5 mg daily, and atorvastatin 20 mg daily. FAMILY MEDICAL HISTORY: Remarkable for prostate cancer. REVIEW OF SYSTEMS: Twelve point review of systems was reviewed and is otherwise negative for signifi cant findings. PHYSICAL EXAMINATION: VITAL SIGNS: Temperature 97.6, pulse 85, respirations 18, O2 sat 96%, blood pressure 120/89. HEENT: Unremarkable. NECK: Demonstrates 1 palpable supraclavicular node on the right. No JVD. LUNGS: Clear breath sounds without wheezing or rhonchi. CARDIOVASCULAR: S1, S2 regular. ABDOMEN: Soft, obese, nontender, nondistended. No hepatosplenomegaly. EXTREMITIES: No clubbing, cyanosis, or edema. No skin lesions. LABORATORY AND X-RAY FINDINGS: White blood cell count 5.1, hematocrit 43.3, platelet count 182. INR 1.0. D-dimer 1.26. Sodium 132, potassium 4.0, chloride 100, CO2 24, BUN 18, creatinine 1.3, glucos e 97, calcium level was 10.4, troponin 0.09. I reviewed the CT scan personally. Lymphadenopathy is present in the subcarinal area, right paratrac heal area, right hilar area and also towards the right neck. ASSESSMENT: 1. Widespread mediastinal adenopathy. 2. Status post defibrillator placement after an episode of torsades - EF 15-20% on echo. RECOMMENDATIONS: The patient had already been sent by his primary care physician to Oncology at [facility]. The patient is not sure if it is related to the current situation, I am being consulted f or. He is asymptomatic. Differential diagnosis in this case would be lymphoma and sarcoidosis. He will eventually need a biopsy. This can be done as an outpatient. I have asked him to follow up in my of [place] in 2-3 weeks. We need to get records from [facility]. No further testing planned during t his admission.
--- NOTE | 2017-03-20 14:03 | DIS ---
DATE OF ADMISSION: 03/17/2017 DATE OF DISCHARGE: 03/20/2017 PRIMARY CARE PHYSICIAN: [facility] call admission. DISCHARGE DISPOSITION: Home. PRIMARY DISCHARGE DIAGNOSES: Torsades de pointes, new onset systolic heart failure and cardiomyopath y, demand ischemia of myocardium, status post automatic implantable cardioverter-defibrillator placem ent, status post cardiac catheterization showed normal coronaries. SECONDARY DISCHARGE DIAGNOSES: Hypertension, obesity with BMI 37, dyslipidemia. PRIMARY PROCEDURE/OPERATION: Cardiac catheterization was performed by Cardiology and it was normal. AICD was placed by Dr. Brian Becktet. Electrophysiology study was performed by Dr. Brian Beckett. RADIOLOGICAL INVESTIGATION: Chest x-ray was normal. CT angio showed mediastinal lymphadenopathy and suspected for lymphoma. Echocardiography showed EF 15-20%. Chest x-ray was unremarkable. SIGNIFICANT LABS: WBC 5.1, hemoglobin 13.8, platelets 182. INR 1.0, D-dimer 1.26. Sodium 133, pota ssium 4.0, BUN 18, creatinine 1.29, calcium 10.4, magnesium 1.7. LFTs normal. Albumin 2.1, troponin 0.090, LDL 98. Lipase 53. TSH 2.27. Urinalysis is normal. Urine drug screen negative. DISCHARGE MEDICATIONS: Amiodarone 400 mg p.o. b.i.d. and then 200 mg t.i.d. for 2 weeks, then 200 mg b.i.d. for 1 week and then 200 mg p.o. daily, aspirin 325 mg p.o. daily, Lipitor 20 mg p.o. daily, C oreg 3.125 mg p.o. b.i.d., Keflex 500 mg p.o. q.6 hourly as directed, Pepcid 20 mg p.o. b.i.d., Lasix 20 mg p.o. daily, losartan 100 mg p.o. daily, Aldactone 25 mg p.o. daily. CONTRAINDICATIONS: None. CODE STATUS: FULL CODE. INPATIENT CONSULTANTS: Dr. Calvin was following while in hospital and Dr. Brian Beckett was consulte d for electrophysiology study. TEST RESULTS PENDING ON DISCHARGE: None. ALLERGIES: No known drug allergy. 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 Brian Beckett. HOSPITAL COURSE: A 57-year-old -[place] male, who was admitted by me on 03/17/2017. Please see my HPI for further details. Patient had acute onset of chest pain, dizziness and shortness of br eath. He was diagnosed with Torsades de pointes in the emergency room. He was started on amiodarone drip and subsequently, his torsades de pointes was corrected. He was having hypokalemia, hypomagnes emia that was corrected while in hospital. He also had demand ischemia of myocardium. We did echoca rdiography and that showed EF 15-20%. This patient required ICU admission. Cardiology was following . Electrophysiology was consulted and they did an electrophysiology study and subsequently patient requ ired AICD. While in hospital, we adjusted above-mentioned medications. His amiodarone drip was disc ontinued and started on amiodarone tapering dose while in hospital. Amiodarone and Keflex prescripti on is given by Dr. Brian Beckett. Rest of medication, we are sending to his pharmacy. The patient is doing overall very well. On admission, he had elevated D-dimer and that is why CT angio was done, which was suspected lymphoma type of picture. While in hospital, we consulted Oncology and Oncology recommended outpatient follo wup and treatment. Dr. Kenny was also following while in hospital. There was no plan for any bron choscopy, but everything will be done as an outpatient basis. Patient and agreed with outpatien t workup. The patient is seen and examined at bedside today. Please see my progress note from today for furthe r details. Total time spent on discharge day more than 30 minutes.
[2017-03-20 15:56] VITALS: BP 134/89; TEMP 97.8
--- NOTE | 2017-03-20 18:50 | PRG ---
DATE OF SERVICE: 03/20/2017 ELECTROPHYSIOLOGY FOLLOWUP NOTE REFERRING PHYSICIAN: Gage Solomon M.D., Luis Calvin M.D. SUBJECTIVE: Mr. Adame is doing well one day after his ICD implant. OBJECTIVE DATA: VITAL SIGNS: Blood pressure 143/87, heart rate 72, respirations 18, temperature 97.6 degrees Fahrenheit. GENERAL: He is alert and oriented man, in no apparent distress. NECK: Supple. Jugular veins not distended. CHEST: Coarse, no crackles. CARDIOVASCULAR: Heart sounds are regular to rate and rhythm. No murmur or gallop. ABDOMEN: Benign. Bowel sounds positive. EXTREMITIES: Lower extremities without edema, clubbing, or cyanosis. Left precordial ICD insertion site is well healed. LABORATORY DATA: Reveals normalized hemoglobin of 12.8, white count is 5.1, platelet count is 182. The chest x-ray from this morning reveals no pneumothorax, mild vascular congestion, adequate lead placement. The interrogation of his device reveals a Medtronic Evera XT DR dual chamber pacemaker defibrillator with beginning of life. Lead parameters are PV 3.0, RV 13.4 millivolts, capture threshold 0.5 volts at 0.4 milliseconds in the atrium and 3.5 volts at 0.4 milliseconds in the right ventricle as well. No significant arrhythmias since implant. Current programming is DDDR with MVP mode on. VT zone programmed 171 beats per minute, VF at 200 beats per minute and above. ASSESSMENT AND PLAN: Mr. Adame is a pleasant 57-year-old man with prior history of sustained ventricular tachyarrhythmias, also newly found congestive heart failure with severely reduced left ventricular ejection fraction and paroxysmal atrial fibrillation. He had atrial flutter on EP study despite of IV amiodarone loading prior to that. He underwent an implantable cardioverter- defibrillator implantation yesterday without difficulty. He tolerated the procedure well, currently stable. PLAN: 1. Routine post ICD care. He is encouraged to continue antibiotics for a week and follow up in 10 days at our office for a wound check. 2. Routine heart failure management. 3. Amiodarone taper advised down to 200 mg in over a month. 4. Weight loss. MTDD
== END 2017-03-20 17:55 | disposition home or self-care (01) | DRG 225 ==
LOC: ERS 06:43 → CCU 09:15 → 2NO 03-18 16:27
PROVIDERS: ADMIT Internal Medicine; ATTEND Internal Medicine
PROC: 4A023N7 Measurement of Cardiac Sampling and Pressure, Left Heart, Percutaneous Approach (ICD-10-PCS; 2017-03-18)
PROC: B2111ZZ Fluoroscopy of Multiple Coronary Arteries using Low Osmolar Contrast (ICD-10-PCS; 2017-03-18)
PROC: 0JH608Z Insertion of Defibrillator Generator into Chest Subcutaneous Tissue and Fascia, Open Approach (ICD-10-PCS; principal; 2017-03-19)
PROC: 02HK3KZ Insertion of Defibrillator Lead into Right Ventricle, Percutaneous Approach (ICD-10-PCS; 2017-03-19)
PROC: 02H63KZ Insertion of Defibrillator Lead into Right Atrium, Percutaneous Approach (ICD-10-PCS; 2017-03-19)
PROC: 8E0WXBF Computer Assisted Procedure of Trunk Region, With Fluoroscopy (ICD-10-PCS; 2017-03-19)
DX: I47.1 Supraventricular tachycardia (principal); I11.0 Hypertensive heart disease with heart failure; I24.8 Other forms of acute ischemic heart disease; I95.9 Hypotension, unspecified; I50.20 Unspecified systolic (congestive) heart failure; E83.42 Hypomagnesemia; I42.8 Other cardiomyopathies; I48.0 Paroxysmal atrial fibrillation; I49.3 Ventricular premature depolarization; E78.5 Hyperlipidemia, unspecified; E87.6 Hypokalemia; R59.1 Generalized enlarged lymph nodes; E66.9 Obesity, unspecified; Z68.37 Body mass index [BMI] 37.0-37.9, adult; Z84.1 Family history of disorders of kidney and ureter; Z83.3 Family history of diabetes mellitus; Z80.42 Family history of malignant neoplasm of prostate
CPT/HCPCS: 33249; 36415; 71010; 71275; 76942; 80048; 80053; 80061; 80306; 81001; 82553; 83615; 83690; 83735; 83880; 84100; 84443; 84484; 85025; 85379; 85610; 85730; 88184; 93005; 93306; 93458; 93620; 93798; 96361; 96365; 96366; 96375; 99152; A4216; C1721; C1730; C1769; C1895; C1898; J0282; J1644; J1940; J2001; J2250; J2405; J2704; J3010; J3475; J3490; J7070

== ENCOUNTER 2020-08-09 16:45 | Inpatient (IN) | payer BC ==
[2020-08-09] MEDS ORDERED: Magnesium 2 GM/50 ML BAG (IN WATER) ONE (16:49)
[2020-08-09 17:04] LABS: #Basophils 0.1 thou/uL (0.0-0.2); #Eosinphils 0.1 thou/uL (0.0-0.7); #Lymphocytes 1.7 thou/uL (1.20-3.40); #Monocytes 0.2 thou/uL (0.11-0.59); #Neutrophils 1.6 thou/uL (1.40-6.50); %Basophils 1.6 % (0.0-1.0); %Eosinophils 3.5 % (0.0-10.0); %Lymphocytes 47.1 % (21.0-51.0); %Neutrophils 42.8 % (42.0-75.0); Hemoglobin 12.8 g/dL (14.0-18.0); Mean Corpuscular HGB CONC 31.7 g/dL (32.0-36.0); Mean Corpuscular Hemoglobin 30.4 pg (27.0-31.0); Mean Corpuscular Volume 95.9 fL (78.0-98.0); Mean Platelet Volume 7.9 fL (7.4-10.4); Platelet Count 130 thou/uL (130-400); RBC Distribution Width 15.1 % (11.5-14.5); Red Blood Cell (RBC) Count 4.23 mill/uL (4.70-6.10); White Blood Cell (WBC) Count 3.6 thou/uL (4.8-10.8)
[2020-08-09 17:10] LABS: Actual Bicarbonate (HCO3a) 20.6 mEq/L (22-28); Analyzer IN Cardio ER; Base Excess (BEa) -3.7 mEq/L (-2.0 to +3.0); Calcium, Ionized (arterial) 1.67 mmol/L (1.12-1.30); Carboxyhemoglobin (COHb) 0.7 gm% (0.0-3.0); Hemoglobin (Hb) 13.3 g/dL (14.0-18.0); O2 Tension (PaO2), arterial 64.8 mmHg (> 80.0); Potassium - ABG Lab 4.37 mmol/L (3.70-5.30); pH, Arterial 7.39 (7.35-7.45)
[2020-08-09 17:11] LABS: Puncture Site RBA
[2020-08-09 17:21] LABS: ALT (SGPT) 42 U/L (8-55); AST (SGOT) 72 U/L (5-34); Albumin 3.4 g/dL (3.4-4.8); Alkaline Phosphatase 204 U/L (40-110); Anion Gap 19 mmol/L (10-20); BUN (Urea Nitrogen) 47 mg/dL (8.4-25.7); Bilirubin, Total 0.5 mg/dL (0.2-1.2); Calc. Creatinine Clearance 0 mL/min (70-130); Carbon Dioxide 18 mmol/L (23-31); Chloride 102 mmol/L (98-107); Globulin 4.2 g/dL (2.4-3.5); Glucose 135 mg/dL (80-115); Lipase 91 U/L (8-78); Magnesium 1.9 mg/dL (1.6-2.6); Potassium 4.4 mmol/L (3.5-5.1); Protein, Total 7.6 g/dL (5.8-8.1); Sodium 135 mmol/L (136-145)
[2020-08-09 17:35] LABS: CKMB 16.2 ng/mL (0-6.6)
[2020-08-09 17:44] LABS: Calcium 13.7 mg/dL (7.8-10.44)
[2020-08-09] MEDS ORDERED: Heparin 10,000 UNITS/ 10 ML VIAL ONE (18:15)
[2020-08-09] MEDS ORDERED: Heparin 25,000 units/D5W 500 ML ONE (18:15)
[2020-08-09 18:29] LABS: PTT 35.8 sec (22.9-36.1); Prothrombin Time 13.7 sec (12.0-14.7)
[2020-08-09] MEDS ORDERED: Calcitonin,Salmon,Synthetic 200 UNITS/ML MDV SC SCH (18:45)
[2020-08-09 18:51] LABS: Bacteria/HPF None Seen HPF (None Seen); Bilirubin Negative (Negative); Blood, Urine Trace (Negative); Clarity Turbid (Clear); Glucose, Urine (Dipstick) Normal (Negative); Ketone, Urine Negative (Negative); Leukocyte 25 Leu/uL (Negative); Nitrite Negative (Negative); Protein, Urine (Dipstick) 30 mg/dL (Neg-Trace); Specific Gravity, Urine 1.015 (1.002-1.036); Squamous Epithelial 0-3 HPF (0-3); Urobilinogen Normal mg/dL (Less than 2); pH, Urine 5.5 (5.0-9.0)
[2020-08-09 19:38] LABS: SARS-CoV-2 NAA Rapid Test Not Detected (NotDetected)
[2020-08-09] MEDS ORDERED: Ondansetron PF 4 MG/2 ML Vial IVP PRN (20:45)
[2020-08-09] MEDS ORDERED: Acetaminophen 325 MG TAB PO PRN (20:45)
[2020-08-09 21:10] VITALS: BMI 40.6
[2020-08-09] MEDS: Famotidine 20 MG TAB PO SCH (21:32)
[2020-08-09] MEDS: cefTRIAXone\\ROCEPHIN 1 GM in Sodium Chloride 0.9% 100 ML IVPB SCH (21:33)
[2020-08-09 21:34] LABS: Troponin I 2.878 ng/mL (< 0.028)
[2020-08-09] MEDS ORDERED: Furosemide 40 MG/4 ML VIAL SLOW IVP SCH (22:00)
[2020-08-09] MEDS: Amiodarone 450 MG, Admixture Fee 1 EACH in Dextrose 5% in Water 250 ML IVPB SCH (22:09)
[2020-08-10 00:28] LABS: Troponin I 3.706 ng/mL (< 0.028)
[2020-08-10 05:32] LABS: #Basophils 0.1 thou/uL (0.0-0.2); #Eosinphils 0.1 thou/uL (0.0-0.7); #Lymphocytes 1.1 thou/uL (1.20-3.40); #Monocytes 0.5 thou/uL (0.11-0.59); %Basophils 1.7 % (0.0-1.0); %Eosinophils 3.5 % (0.0-10.0); %Monocytes 13.5 % (0.0-10.0); %Neutrophils 52.4 % (42.0-75.0); Hemoglobin 11.7 g/dL (14.0-18.0); Mean Corpuscular HGB CONC 31.1 g/dL (32.0-36.0); Mean Corpuscular Hemoglobin 30.3 pg (27.0-31.0); Mean Corpuscular Volume 97.3 fL (78.0-98.0); Mean Platelet Volume 8.2 fL (7.4-10.4); Platelet Count 122 thou/uL (130-400); Red Blood Cell (RBC) Count 3.86 mill/uL (4.70-6.10); White Blood Cell (WBC) Count 3.7 thou/uL (4.8-10.8)
[2020-08-10 06:13] LABS: Troponin I 3.942 ng/mL (< 0.028)
[2020-08-10 06:16] LABS: ALT (SGPT) 40 U/L (8-55); AST (SGOT) 78 U/L (5-34); Albumin 3.2 g/dL (3.4-4.8); Alkaline Phosphatase 190 U/L (40-110); Bilirubin, Direct 0.2 mg/dL (0.1-0.3); Bilirubin, Total 0.4 mg/dL (0.2-1.2); Protein, Total 6.9 g/dL (5.8-8.1)
[2020-08-10 06:19] LABS: Anion Gap 15 mmol/L (10-20); BUN (Urea Nitrogen) 42 mg/dL (8.4-25.7); Calc. Creatinine Clearance 44 mL/min (70-130); Carbon Dioxide 27 mmol/L (23-31); Chloride 103 mmol/L (98-107); Glucose 80 mg/dL (80-115); Magnesium 2.1 mg/dL (1.6-2.6); Sodium 141 mmol/L (136-145)
[2020-08-10 06:30] LABS: Calcium 12.7 mg/dL (7.8-10.44)
[2020-08-10] MEDS: Aspirin 81 mg Enteric Coated Tablet PO SCH (11:01)
[2020-08-10 12:09] LABS: Reference Lab Name LABCORP
[2020-08-10] MEDS: Heparin 5,000 UNITS/ML VIAL SC SCH (20:16)
[2020-08-10] MEDS: Famotidine 20 MG TAB PO SCH (20:16)
[2020-08-10] MEDS: Atorvastatin Calcium 20 MG TAB PO SCH (20:16)
[2020-08-10] MEDS: cefTRIAXone\\ROCEPHIN 1 GM in Sodium Chloride 0.9% 100 ML IVPB SCH (20:20)
[2020-08-11 04:16] LABS: #Eosinphils 0.2 thou/uL (0.0-0.7); #Lymphocytes 1.2 thou/uL (1.20-3.40); #Monocytes 0.6 thou/uL (0.11-0.59); #Neutrophils 2.6 thou/uL (1.40-6.50); %Basophils 0.9 % (0.0-1.0); %Eosinophils 4.6 % (0.0-10.0); %Lymphocytes 25.9 % (21.0-51.0); %Neutrophils 55.7 % (42.0-75.0); Hemoglobin 12.7 g/dL (14.0-18.0); Mean Corpuscular HGB CONC 32.6 g/dL (32.0-36.0); Mean Corpuscular Hemoglobin 31.5 pg (27.0-31.0); Mean Corpuscular Volume 96.7 fL (78.0-98.0); Mean Platelet Volume 7.7 fL (7.4-10.4); Platelet Count 116 thou/uL (130-400); Red Blood Cell (RBC) Count 4.03 mill/uL (4.70-6.10); White Blood Cell (WBC) Count 4.6 thou/uL (4.8-10.8)
[2020-08-11 04:34] LABS: ALT (SGPT) 36 U/L (8-55); AST (SGOT) 64 U/L (5-34); Albumin 3.2 g/dL (3.4-4.8); Alkaline Phosphatase 188 U/L (40-110); Anion Gap 11 mmol/L (10-20); BUN (Urea Nitrogen) 36 mg/dL (8.4-25.7); Bilirubin, Direct 0.3 mg/dL (0.1-0.3); Bilirubin, Total 0.5 mg/dL (0.2-1.2); Calc. Creatinine Clearance 50 mL/min (70-130); Carbon Dioxide 30 mmol/L (23-31); Chloride 102 mmol/L (98-107); Glucose 83 mg/dL (80-115); Potassium 3.8 mmol/L (3.5-5.1); Sodium 139 mmol/L (136-145)
[2020-08-11] MEDS: Amiodarone 450 MG, Admixture Fee 1 EACH in Dextrose 5% in Water 250 ML IVPB SCH ×2 (05:04→19:06)
[2020-08-11] MEDS: Aspirin 81 mg Enteric Coated Tablet PO SCH (08:22)
[2020-08-11] MEDS: Heparin 5,000 UNITS/ML VIAL SC SCH ×3 (08:22→21:29)
[2020-08-11] MEDS: Isosorbide Dinitrate 20 MG TAB PO SCH ×3 (10:34→21:19)
[2020-08-11] MEDS: Carvedilol 3.125 MG TAB PO SCH (16:58)
[2020-08-11] MEDS: Famotidine 20 MG TAB PO SCH (21:29)
[2020-08-11] MEDS: Atorvastatin Calcium 20 MG TAB PO SCH (21:29)
[2020-08-11] MEDS: cefTRIAXone\\ROCEPHIN 1 GM in Sodium Chloride 0.9% 100 ML IVPB SCH (21:29)
[2020-08-12 05:29] LABS: Anion Gap 13 mmol/L (10-20); BUN (Urea Nitrogen) 32 mg/dL (8.4-25.7); Calc. Creatinine Clearance 53 mL/min (70-130); Calcium 11.9 mg/dL (7.8-10.44); Carbon Dioxide 24 mmol/L (23-31); Chloride 105 mmol/L (98-107); Glucose 76 mg/dL (80-115); Magnesium 1.7 mg/dL (1.6-2.6); Potassium 3.6 mmol/L (3.5-5.1); Sodium 138 mmol/L (136-145)
[2020-08-12 05:45] LABS: Band 8 % (5-11); Eosinophils 3 % (0-10); Hemoglobin 12.1 g/dL (14.0-18.0); Lymphocytes 24 % (21-51); MDiff Complete? YES; Mean Corpuscular HGB CONC 32.5 g/dL (32.0-36.0); Mean Corpuscular Hemoglobin 31.2 pg (27.0-31.0); Mean Corpuscular Volume 96.1 fL (78.0-98.0); Mean Platelet Volume 8.1 fL (7.4-10.4); Monocytes 17 % (0-10); Neutrophil 48 % (42-75); Platelet Count 112 thou/uL (130-400); Platelet Morphology Comment Appears Decreased; Red Blood Cell (RBC) Count 3.87 mill/uL (4.70-6.10); White Blood Cell (WBC) Count 3.9 thou/uL (4.8-10.8)
[2020-08-12 07:50] VITALS: TEMP 97.7
[2020-08-12] MEDS: Aspirin 81 mg Enteric Coated Tablet PO SCH (08:58)
[2020-08-12] MEDS: Heparin 5,000 UNITS/ML VIAL SC SCH ×2 (08:58→16:41)
[2020-08-12] MEDS ORDERED: Amiodarone 200 MG TAB PO SCH (09:00)
[2020-08-12] MEDS: Carvedilol 3.125 MG TAB PO SCH (10:47)
[2020-08-12] MEDS: Isosorbide Dinitrate 20 MG TAB PO SCH ×2 (10:47→16:41)
[2020-08-12 14:14] LABS: IFE-Serum Interpretation Note: (.); IgA - Total IgA (Sendout) 917 mg/dL (61-437); Immunoglobulin - G (Sendout) 1397 mg/dL (603-1613); Immunoglobulin - M (Sendout) 127 mg/dL (20-172)
[2020-08-12 15:34] VITALS: BP 110/74
[2020-08-13] MEDS ORDERED: predniSONE 20 MG TAB PO SCH (08:00)
== END 2020-08-12 16:25 | disposition home or self-care (01) | DRG 308 ==
LOC: ERS 16:45 → CCU 18:48 → 2NO 08-11 07:35
PROVIDERS: ADMIT Internal Medicine; ATTEND Internal Medicine
PROC: 5A2204Z Restoration of Cardiac Rhythm, Single (ICD-10-PCS; principal; 2020-08-09)
DX: I47.2 Ventricular tachycardia (principal); I50.23 Acute on chronic systolic (congestive) heart failure; N17.9 Acute kidney failure, unspecified; N39.0 Urinary tract infection, site not specified; I13.0 Hypertensive heart and chronic kidney disease with heart failure and stage 1 through stage 4 chronic kidney disease, or unspecified chronic kidney disease; I42.0 Dilated cardiomyopathy; Z68.41 Body mass index [BMI] 40.0-44.9, adult; E78.5 Hyperlipidemia, unspecified; I25.10 Atherosclerotic heart disease of native coronary artery without angina pectoris; D64.9 Anemia, unspecified; E83.52 Hypercalcemia; R77.8 Other specified abnormalities of plasma proteins; D86.9 Sarcoidosis, unspecified; E03.9 Hypothyroidism, unspecified; E66.01 Morbid (severe) obesity due to excess calories; N18.9 Chronic kidney disease, unspecified; Z79.82 Long term (current) use of aspirin; Z95.810 Presence of automatic (implantable) cardiac defibrillator; Z84.1 Family history of disorders of kidney and ureter
CPT/HCPCS: 0240U; 36415; 36416; 36556; 36600; 71045; 80048; 80053; 80076; 81003; 81015; 82306; 82330; 82553; 82652; 82805; 83690; 83735; 83880; 83970; 84439; 84443; 84484; 85025; 85610; 85730; 86334; 86335; 87086; 92960; 93005; 93306; 96365; 96366; 96367; J0282; J0696; J1644; J1940; J3475; J3490; J7070